=== PATIENT | male | born 1975 | race Asian ===

== ENCOUNTER 2024-01-03 12:08 | Emergency (ER) | payer MEDICAID | END 2024-01-03 13:27 | disposition left against medical advice (07) | LOC: ER 12:08 | DX: Z48.00 Encounter for change or removal of nonsurgical wound dressing (principal); Z53.21 Procedure and treatment not carried out due to patient leaving prior to being seen by health care provider ==

== ENCOUNTER 2024-06-17 23:43 | Emergency (ER) | payer MEDICARE, MEDICAID ==
[~2024-06-17] VITALS: Ht 177.8 cm; Wt 62.7 kg
[2024-06-18 00:55] LABS: Basophils # (auto) 0 10 ^3/uL (0-0.2); Basophils % (auto) 0.2 % (0.0-2.0); Eosinophils # (auto) 0.1 10 ^3/uL (0-0.8); Eosinophils % (auto) 1.1 % (0.0-7.0); Hematocrit 39.6 % (41.0-53.0); Hemoglobin 13.5 g/dL (13.5-17.5); Lymphocytes # (auto) 2.7 10 ^3/uL (0.4-5.4); Lymphocytes % (auto) 23.6 % (10.0-50.0); Mean Corpuscular Hemoglobin 31.2 pg (28.0-32.0); Mean Corpuscular Hgb Conc. 33.9 g/dL (32.0-36.0); Monocytes # (auto) 0.9 10 ^3/uL (0-1.3); Monocytes % (auto) 8.3 % (0.0-12.0); Neutrophils # (auto) 7.6 10 ^3/uL (1.6-8.6); Neutrophils % (auto) 66.8 % (37.0-80.0); Platelet Count (auto) 308 10^3/uL (140-450); Red Blood Cells 4.31 10^6/uL (4.5-5.90); Red Cell Distribution Width 15.7 % (11.8-14.3); White Blood Cell 11.3 10^3/uL (4.4-10.8)
[2024-06-18] MEDS: KETOROLAC TROMETH 30 MG/ML 1ML VIAL IM ONE (01:02)
[2024-06-18] MEDS: PENICILLIN G BENZ 1,200,000 UNITS/2 ML SYRG IM ONE (01:05)
[2024-06-18 01:08] LABS: Chloride 105 mmol/L (98-107); Potassium 4.1 mmol/L (3.5-5.1); Sodium 134 mmol/L (136-145)
[2024-06-18 01:09] LABS: Anion Gap 4 (5-15); Calcium 8.9 mg/dL (8.7-10.4); Carbon Dioxide 25 mmol/L (20-30)
[2024-06-18 01:14] LABS: BUN/Creatinine Ratio 10.6 (10.0-20.0); Blood Urea Nitrogen 9 mg/dL (9-23); Glucose 94 mg/dL (74-106)
[2024-06-18] MEDS ORDERED: HYDR-4902 PO (01:50)
[2024-06-18] MEDS ORDERED: BACDST PO (01:50)
[2024-06-18] MEDS ORDERED: IBUP1TAB5 PO (01:50)
[2024-06-18 01:57] VITALS: BP 123/73; PULSE 99; RESP 19; TEMP 98.8; O2SAT 99
[2024-06-18] MEDS ORDERED: ELVI1TAB5 PO (02:01)
[2024-06-18] MEDS: HYDROcodone-ACET 5/325MG TAB PO ONE (02:10)
[2024-06-20 07:06] LABS: RPR Non Reactive (Non Reactive)
== END 2024-06-18 02:19 | disposition home or self-care (01) ==
LOC: ER 23:43
DX: L98.8 Other specified disorders of the skin and subcutaneous tissue (principal); I10 Essential (primary) hypertension; F17.210 Nicotine dependence, cigarettes, uncomplicated; F12.10 Cannabis abuse, uncomplicated
CPT/HCPCS: 36415; 80048; 83605; 85025; 86592; 96372; 99284; J0561; J1885

== ENCOUNTER 2024-06-26 14:09 | Emergency (ER) | payer MEDICARE, MEDICAID ==
[~2024-06-26 14:09] MED LIST: BACDST PO; ELVI1TAB5 PO; HYDR-4902 PO; IBUP1TAB5 PO
== END 2024-06-26 15:00 | disposition left against medical advice (07) ==
LOC: ER 14:09
DX: J34.89 Other specified disorders of nose and nasal sinuses (principal); Z53.21 Procedure and treatment not carried out due to patient leaving prior to being seen by health care provider

== ENCOUNTER 2024-10-12 08:12 | Emergency (ER) | payer MEDICARE, MEDICAID ==
[~2024-10-12] VITALS: Ht 175.3 cm; Wt 65.0 kg
[~2024-10-12 08:12] MED LIST changes: +CEPH500C PO
[2024-10-12] MEDS: KETOROLAC TROMETH 60MG/2ML VIAL IM ONE (08:48)
--- NOTE | 2024-10-12 08:59 | DVH ---
INDICATION: LBP TECHNIQUE: 4 views of the lumbar spine were obtained. COMPARISON: None FINDINGS: There are no acute fractures or subluxations. Multilevel degenerative changes of the spine. Moderate volume colonic stool. IMPRESSION: No acute fracture or subluxation.
--- NOTE | 2024-10-12 09:08 | ED.PDOC ---
Back pain HPI HPI Comments 48Y M with PMHx HTN presents to ED for chief complaint low back pain x2days. Additional symptom includes mouth pain. Pt denies chest pain, SOB, and urinary symptoms. No other symptoms reported. Pt states he has a previous back injury but denies recent trauma. Chief Complaint: Back Pain Time Seen by MD: 08:50 Primary Care Provider: NONE Reviewed Notes: Nurses Notes, Medications, Allergies Allergies: Coded Allergies: NO KNOWN ALLERGIES (Unverified , 01/02/24) Home Meds Active Scripts Cephalexin Monohydrate (Cephalexin) 500 Mg Cap, 1 CAP PO TID for 7 Days, #21 CAP Prov:NELA YARBROUGH [employer] SERVICES MANAGER 08/26/24 Jeciopmlfuih-Vrxwonfbxn-Ikiumr (Genvoya [phone] mg) 1 Tab Tab, 1 TAB PO DAILY for 30 Days, #30 TAB 1 Refill Prov:LYLA GARCIA [facility] 06/18/24 Ibuprofen Micronized (Ibuprofen) 600 Mg Tab, 600 MG PO Q8HPRN PRN, #20 TAB Prov:LYLA GARCIA [facility] 06/18/24 Hydrocodone-Acetaminophen (Hydrocodone Bitartrate/AC 5-325 mg) 1 Tab Tab, 1 TAB PO Q6HPRN PRN, #10 TAB Prov:LYLA GARCIA [facility] 06/18/24 Sulfamethoxazole W/Trimethopri (Bactrim Ds Tablet) 1 Tab Tb, 1 TAB PO BID for 10 Days, #20 TAB Prov:LYLA GARCIA [facility] 06/18/24 Information Source: Patient Mode of Arrival: Ambulatory Timing: Days Duration: Since onset Location of Back pain: (B) Lower back Severity: Mild Quality: Aching Onset: Spontaneous Circumstance: Other History of: Other Modifying Factors: Nothing Associated signs and symptoms: None Past Medical History PAST MEDICAL HISTORY: HTN Surgical History: Denies all surgeries Family History Family History: Reviewed,noncontributory to illness Social History Smoker: Cigarettes Alcohol: Occasionally Drugs: Marijuana, Methamphetamine Lives In: Home Constitutional: denies: chills, diaphoresis, fatigue, fever, malaise, sweats, weakness, others EENTM: reports: mouth pain; denies: blurred vision, double vision, ear bleeding, ear discharge, ear drainage, ear pain, ear ringing, eye pain, eye redn ess, hearing loss, mouth swelling, nasal discharge, nose bleeding, nose congestion, nose pain, photophobia, tearing, throat pain, throat swelling, voice changes, others Respiratory: denies: cough, hemoptysis, orthopnea, SOB at rest, shortness of breath, SOB with excertion, stridor, wheezing, others Cardiovascular: denies: chest pain, dizzy spells, diaphoresis, Dyspnea on exertion, edema, irregular heart beat, left arm pain, lightheadedness, palpitations, PND, syncope, others Gastrointestinal: denies: abdomen distended, abdominal pain, blood streaked bowels, constipated, diarrhea, dysphagia, difficulty swallowing, hematemesis, melena, nausea, poor appetite, poor fluid intake, rectal bleeding, rectal pain, vomiting, others Genitourinary: denies: burning, dysuria, flank pain, frequency, hematuria, in continence, penile discharge, penile sore, pain, testicle pain, testicle swelling, urgency, others Neurological: denies: dizziness, fainting, headache, left sided numbness, left sided weakness, numbness, paresthesia, pre-existing deficit, right sided numbness, right sided weakness, seizure, speech problems, tingling, tremors, weakness, others Musculoskeletal: reports: back pain; denies: gout, joint pain, joint swelling, muscle pain, muscle stiffness, neck pain, others Integumetry: denies: bruises, change in color, change in hair/nails, dryness, laceration, lesions, lumps, rash, wounds, others Allergic/Immunocompromised: denies: Difficulty Healing, Frequent Infections, Hives, Itching, others Hematologic/Lymphatic: denies: anemia, blood clots, easy bleeding, easy bruising, swollen glands, others Endocrine: denies: excessive hunger, excessive sweating, excessive thirst, excessive urination, flushing, intolerance to cold, intolerance to heat, unexplained weight gain, unexplained weight loss, others Psychiatric: denies: anxiety, bipolar disorder, depression, hopeless, panic disorder, schizophrenia, sleepless, suicidal, others All Other Systems: Reviewed and Negative Physical Exam General Appearance: No Apparent Distress, Normal HEENT: Pharynx Normal, TMs Normal, Other (mouth: dental caries right lower second molar) Neck: Full Range of Motion, Non-Tender, Normal, Normal Inspection Respiratory: Chest Non-Tender, Lungs Clear, No Accessory Muscle Use, No Respiratory Distress, Normal Breath Sounds Cardiovascular: No Edema, No JVD, No Murmur, No Gallop, Normal Peripheral Pulses, Regular Rate/Rhythm Breast Exam: Deferred Gastrointestinal: No Organomegaly, Non Tender, No Pulsatile Mass, Normal Bowel Sounds, Soft Genitalia: Deferred Pelvic: Deferred Rectal: Deferred Extremities: No calf tenderness, Normal capillary refill, Normal inspection, Normal range of motion, Non-tender, No pedal edema Musculoskeletal : Apperance: Normal Neurologic: Alert, vise hand II-XII nml as Tested, No Motor Deficits, Normal Affect, Normal Mood, No Sensory Deficits Cerebellar Function: Normal Reflexes: Normal Skin: Dry, Normal Color, Warm Lymphatic: No Adenopathy Was a procedure done? Was a procedure done?: No Back Pain Differential Dx Differential Diagnosis: Fracture, Musculoskeletal Pain Other Differential Diagnosis dental abscess, dental caries, adenopathy, neck mass X-Ray, Labs, Meds, VS Vital Signs Date Time Temp Pulse Resp B/P (MAP) Pulse Ox O2 Delivery O2 Flow Rate FiO2 10/12/24 08:54 Room Air* 0 21 10/12/24 08:35 98.1 129 18 115/73 (87) 98 98.1 10/12/24 08:30 98.1 129 18 115/73 (87) 98 Current Medications Medications (Trade) Dose Ordered Sig/Zofia Route Start Time Stop Time Status Last Admin Ketorolac Tromethamine (Toradol Injection) 60 mg ONCE ONCE IM 10/12/24 08:45 10/12/24 08:46 DC 10/12/24 08:48 [place] [id number] Ph: [phone] DIAGNOSTIC IMAGING Diagnostic Imaging Report : [id number] Signed PATIENT: GUSTABO COLEY ACCT: [id number] UNIT: [id number] : 1975 LOC: ER ROOM / BED: / AGE / SEX: 48 / M ADM STATUS: REG ER SERVICE [id number] ORDERING PHYSICIAN: ANUJ DUBOIS MD PROCEDURE(s): LUMB2 - LUMBAR SPINE 3 VIEW REASON: LBP ORDER NUMBER(s): [id number], ACCESSION NUMBER(s): [id number] INDICATION: LBP TECHNIQUE: 4 views of the lumbar spine were obtained. COMPARISON: None FINDINGS: There are no acute fractures or subluxations. Multilevel degenerative changes of the spine. Moderate volume colonic stool. IMPRESSION: No acute fracture or subluxation. ATED BY: CHRIS DAY MD DICTATED DATE/TIME: 10/12/24856 SIGNED BY: CHRIS DAY MD SIGNED DATE/TIME: 10/12/24856 CC: Time of 1ST Reevaluation: 09:20 Reevaluation 1ST: Unchanged Patient Education/Counseling: Diagnosis, Treatment, Prognosis, Need For Follow Up Family Education/Counseling: No Family Present Additional Information I reviewed the following notes from patient's past medical encounters: [facility] ER 08/25/2024, 06/26/2024, 06/17/2024, 01/03/2024, 01/02/2024 The following tests were ordered, and results were reviewed by me: L-spine x-ray Additional Information was gathered from interviewing the following independent historians: None I reviewed and agreed with the following test results read by other providers: L-spine x-ray I discussed treatment and results with medical personnel. pt has a dental caries on the right 2nd molar, without an abscess. he also has acute on chronic lbp, without injuries or xray abnormalities. he has no neurologic symptoms. pt is stable for discharge Departure 1 Departure Time of Disposition: 09:56 Impression: Primary Impression: Low back pain Qualified Codes: M54.50 - Low back pain, unspecified Additional Impression: Dental caries Disposition: HOME / SELF CARE / HOMELESS Condition: Good e-Prescriptions Cyclobenzaprine Hcl (Cyclobenzaprine Hcl) 10 Mg Tab 10 MG PO Q8HP PRN, #6 TAB Prov: ANUJ DUBOIS MD 10/12/24 Ibuprofen Micronized (MOTRIN TABLET) 600 Mg Tb 600 MG PO TID PRN, #40 TAB *Black box warning-NSAIDS can increase risk of SD & hypertension, GI irritation, ulceration, bleed, perferation. Do not use post cardiac surgery. Use short duration/lowest effective dose. Prov: ANUJ DUBOIS MD 10/12/24 Cephalexin Monohydrate (Cephalexin) 500 Mg Tab 1 TAB PO QID, #40 TAB Prov: ANUJ DUBOIS MD 10/12/24 Discharged With: Self Critical Care Note Critical Care Time?: No Stability Stability form required: No Heart Score Heart Score: Heart Score Response (Comments) Value History N/A 0 EKG N/A 0 Age N/A 0 Risk Factors N/A 0 Troponin N/A 0 Total 0 I personally scribed for ANUJ DUBOIS MD ([email or web address]) on 10/12/24 at 09:08. Electronically submitted by Malou Lutz ([email or web address]). ANUJ DUBOIS MD Oct 12, 2024 09:08
[2024-10-12] MEDS ORDERED: IBU600T PO (09:58)
[2024-10-12] MEDS ORDERED: CYCL-839 PO (09:58)
[2024-10-12] MEDS ORDERED: CEPH500T PO (09:58)
[2024-10-12 10:12] VITALS: BP 110/76; PULSE 62; RESP 18; TEMP 99.2; O2SAT 24
== END 2024-10-12 10:17 | disposition home or self-care (01) ==
LOC: ER 08:12
DX: M54.50 Low back pain, unspecified (principal); K02.9 Dental caries, unspecified; I10 Essential (primary) hypertension; F17.210 Nicotine dependence, cigarettes, uncomplicated; F15.90 Other stimulant use, unspecified, uncomplicated; Z79.899 Other long term (current) drug therapy
CPT/HCPCS: 72100; 96372; 99283; J1885

== ENCOUNTER 2025-05-20 21:58 | Emergency (ER) | payer MEDICAID, MEDICARE ==
[~2025-05-20] VITALS: Ht 177.8 cm; Wt 62.9 kg
[~2025-05-20 21:58] MED LIST changes: +CEPH500T PO; +CYCL-839 PO; +IBU600T PO
[2025-05-20 22:01] VITALS: BP 118/73; PULSE 125; RESP 20; TEMP 98.4; O2SAT 100
== END 2025-05-21 02:01 | disposition left against medical advice (07) ==
LOC: ER 21:58
DX: L02.01 Cutaneous abscess of face (principal); Z53.21 Procedure and treatment not carried out due to patient leaving prior to being seen by health care provider